=== PATIENT | female | born 1945 | race Caucasian/White ===

== ENCOUNTER → 2020-01-03 11:34 | Outpatient (BNVA) | payer MEDICARE, OTHER, SELFPAY | PROVIDERS: Family Provider Internal Medicine; PCP Internal Medicine; Visit Provider Specialist | DX: G35 Multiple sclerosis (principal); G50.0 Trigeminal neuralgia | CPT/HCPCS: 99204 ==

== ENCOUNTER 2020-01-09 16:03 | Outpatient (CLI) | payer MEDICARE, OTHER, SELFPAY ==
--- NOTE | 2020-01-09 | MR_ITS ---
WS: [id number] Muna Watson 1945 MRI HEAD WITHOUT CONTRAST TECHNIQUE: Sagittal T1, T2 axial, T2 axial FLAIR, axial and coronal T1 images, axial susceptibility w eighted imaging, axial diffusion weighted images, and coronal T2 images were obtained. CLINICAL INFORMATION: Trigeminal neuralgia COMPARISON: None. FINDINGS: No evidence of restricted diffusion to suggest acute ischemia. Ventricular system and basal cisterns are patent. Mild supratentorial white matter changes consistent with small vessel disease in a patien t this age. Mild parenchymal volume loss. Normal posterior fossa. Normal vascular flow voids at the s kull base. No extra-axial fluid collections. No evidence of mass or mass effect. Paranasal sinuses an d mastoid air cells are well aerated. No hemosiderin on susceptibly weighted images. Moderate symmetric atrophy involving the temporal lobe s and hippocampal formations. Normal optic chiasm and pituitary infundibulum. Normal cavernous sinuse s and Meckel's cave. Visualized proximal 7th and 8th cranial nerves appear normal. Visualized trigemi nal nerve root entry zones appear unremarkable. No evidence of visualized IAC or CP angle mass. MR/MR head wo con* [id number] IMPRESSION: 1. No evidence of restricted diffusion to suggest acute ischemia. 2. Mild small vessel changes with mild parenchymal volume loss. 3. Proximal 7th and 8th cranial nerves and trigeminal nerve root entry zones a ppear unremarkable. Meckel's cave and cavernous sinuses appear normal. If persi stent symptoms, high-resolution MRI IAC and trigeminal neuralgia protocol witho ut and with gadolinium enhancement could be performed. 4. No hemosiderin on susceptibly weighted images. 5. No other significant findings.
== END 2020-01-09 16:04 | disposition home or self-care (01) ==
LOC: RADSHAW 16:03
PROVIDERS: PCP Internal Medicine; Visit Provider Specialist
DX: G50.0 Trigeminal neuralgia (principal)
CPT/HCPCS: 70551

== ENCOUNTER → 2020-07-30 08:35 | Outpatient (BNVA) | payer MEDICARE, OTHER, SELFPAY | PROVIDERS: PCP Internal Medicine; Visit Provider Specialist | DX: G50.0 Trigeminal neuralgia (principal); Z87.891 Personal history of nicotine dependence | CPT/HCPCS: 99214 ==

== ENCOUNTER → 2021-01-26 14:40 | Outpatient (BNVA) | payer MEDICARE, OTHER, SELFPAY | PROVIDERS: PCP Internal Medicine; Visit Provider Specialist | DX: G50.0 Trigeminal neuralgia (principal); G37.9 Demyelinating disease of central nervous system, unspecified; Z87.891 Personal history of nicotine dependence | CPT/HCPCS: 99213; 99214 ==

== ENCOUNTER → 2021-07-27 14:31 | Outpatient (BNVA) | payer MEDICARE, OTHER, SELFPAY | PROVIDERS: PCP Internal Medicine; Visit Provider Specialist | DX: G37.9 Demyelinating disease of central nervous system, unspecified (principal); G50.0 Trigeminal neuralgia; Z87.891 Personal history of nicotine dependence | CPT/HCPCS: 99213; 99214 ==

== ENCOUNTER → 2022-07-27 13:48 | Outpatient (BNVA) | payer MEDICARE, OTHER, SELFPAY | PROVIDERS: PCP Internal Medicine; Visit Provider Specialist | DX: G50.0 Trigeminal neuralgia (principal); G37.9 Demyelinating disease of central nervous system, unspecified; G43.109 Migraine with aura, not intractable, without status migrainosus | CPT/HCPCS: 64405; 64450; 96372; 99214; J1030; J1885; J2405; J3490 ==

== ENCOUNTER → 2023-01-25 13:36 | Outpatient (BNVA) | payer MEDICARE, OTHER, SELFPAY | PROVIDERS: PCP Internal Medicine; Visit Provider Specialist | DX: G50.0 Trigeminal neuralgia (principal); G37.9 Demyelinating disease of central nervous system, unspecified | CPT/HCPCS: 99213 ==

== ENCOUNTER → 2023-06-30 10:34 | Outpatient (BNVA) | payer MEDICARE, OTHER, SELFPAY | PROVIDERS: PCP Internal Medicine; Visit Provider Specialist | DX: G50.0 Trigeminal neuralgia (principal); M54.81 Occipital neuralgia | CPT/HCPCS: 99213; J1030; J3490 ==

== ENCOUNTER → 2023-08-04 14:28 | Outpatient (BNVA) | payer MEDICARE, OTHER, SELFPAY | PROVIDERS: PCP Internal Medicine; Visit Provider Specialist | DX: M54.81 Occipital neuralgia (principal); G50.0 Trigeminal neuralgia; G24.3 Spasmodic torticollis | CPT/HCPCS: 64405; 64450; 99213; J1010; J3490 ==

== ENCOUNTER → 2023-09-22 10:40 | Outpatient (BNVA) | payer MEDICARE, OTHER, SELFPAY | PROVIDERS: PCP Internal Medicine; Visit Provider Specialist | DX: G43.711 Chronic migraine without aura, intractable, with status migrainosus (principal); G24.3 Spasmodic torticollis; G50.0 Trigeminal neuralgia | CPT/HCPCS: 64616; 99213; J0585 ==

== ENCOUNTER → 2023-12-29 10:15 | Outpatient (BNVA) | payer MEDICARE, OTHER, SELFPAY | PROVIDERS: PCP Internal Medicine; Visit Provider Specialist | DX: G24.3 Spasmodic torticollis (principal); G43.711 Chronic migraine without aura, intractable, with status migrainosus; G50.0 Trigeminal neuralgia | CPT/HCPCS: 64616; J0585 ==

== ENCOUNTER → 2024-04-06 10:15 | Outpatient (BNVA) | payer MEDICARE, OTHER, SELFPAY | PROVIDERS: PCP Internal Medicine; Visit Provider Specialist | DX: G24.3 Spasmodic torticollis (principal); G43.711 Chronic migraine without aura, intractable, with status migrainosus; G50.0 Trigeminal neuralgia; R03.0 Elevated blood-pressure reading, without diagnosis of hypertension | CPT/HCPCS: 64616; J0585 ==

== ENCOUNTER → 2024-07-13 10:13 | Outpatient (BNVA) | payer MEDICARE, OTHER, SELFPAY | PROVIDERS: PCP Internal Medicine; Visit Provider Specialist | DX: G24.3 Spasmodic torticollis (principal) | CPT/HCPCS: 64616; J0585; J9999 ==

== ENCOUNTER → 2024-10-11 10:39 | Outpatient (BNVA) | payer MEDICARE, OTHER, SELFPAY | PROVIDERS: PCP Internal Medicine; Visit Provider Specialist | DX: G24.3 Spasmodic torticollis (principal) | CPT/HCPCS: 64616; J0585; J9999 ==

== ENCOUNTER → 2025-01-17 14:57 | Outpatient (BNVA) | payer MEDICARE, OTHER, SELFPAY | PROVIDERS: PCP Internal Medicine; Visit Provider Specialist | DX: G24.3 Spasmodic torticollis (principal); G43.711 Chronic migraine without aura, intractable, with status migrainosus; G50.0 Trigeminal neuralgia; R03.0 Elevated blood-pressure reading, without diagnosis of hypertension | CPT/HCPCS: 64616; J0585; J1885; J2405; J9999 ==